=== PATIENT | female | born 1980 | race Caucasian/White ===

== ENCOUNTER 2018-04-17 21:32 | Emergency (ER) | payer MEDICAID ==
--- NOTE | 2018-04-17 21:51 | EDM.PDOC ---
ED HPI GENERAL MEDICAL PROBLEM - General Chief Complaint: Lower Extremity Injury/Pain Stated Complaint: PAIN RT KNEE Time Seen by Provider: 04/17/18 21:46 - History of Present Illness INITIAL COMMENTS - FREE TEXT/NARRATIVE: HISTORY AND PHYSICAL: History of present illness: Patient 38-year-old female with a concern of right knee pain she states she had injured proximal one year prior she failed to follow-up due to a variety of circumstances and did not get the MRI that was scheduled or other evaluation at that time patient states over the last 3 days his scar grossly worse she was seen in [place] in which physical exam was done and patient was discharged with pain medication on arrival here patient's main concern related to orthopedic referral and any other imaging might be indicated at this time Review of systems: As per history of present illness and below otherwise all systems reviewed and negative. Past medical history: As per history of present illness and as reviewed below otherwise noncontributory. Surgical history: As per history of present illness and as reviewed below otherwise noncontributory. Social history: No reported history of drug or alcohol abuse. Family history: As per history of present illness and as reviewed below otherwise noncontributory. Physical exam: HEENT: Atraumatic, normocephalic, pupils reactive, negative for conjunctival pallor or scleral icterus, mucous membranes moist, throat clear, neck supple, nontender, trachea midline. Lungs: Clear to auscultation, breath sounds equal bilaterally, chest nontender. Heart: S1S2, regular, negative for clicks, rubs, or JVD. Abdomen: Soft, nondistended, nontender. Negative for masses or hepatosplenomegaly. Negative for costovertebral tenderness. Pelvis: Stable nontender. Genitourinary: Deferred. Rectal: Deferred. Extremities: Patient has pain with small swelling noted limited range of motion secondary to the discomfort is no crepitation joint is grossly stable CMS neurovascular is unremarkable Neuro: Awake, alert, oriented. Cranial nerves II through XII unremarkable. Cerebellum unremarkable. Motor and sensory unremarkable throughout. Exam nonfocal. Diagnostics: X-ray right knee Therapeutics: Immobilizer/crutches Impression: #1 right knee pain Definitive disposition and diagnosis as appropriate pending reevaluation and review of above. 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 ED EXAM, GENERAL - Physical Exam Exam: See Below (See dictation) Course - Vital Signs Last Recorded V/S: Last Vital Signs Temp 37.1 C 04/17/18 21:32 Pulse 92 04/17/18 21:32 Resp 18 04/17/18 21:32 BP 128/71 04/17/18 21:32 Pulse Ox 98 04/17/18 21:32 Departure - Departure Time of Disposition: 21:50 Disposition: Home, Self-Care 01 Condition: Good Clinical Impression: Knee pain - Discharge Information Referrals: PCP,None [Primary Care Provider] - Additional Instructions: The following information is given to patients seen in the emergency department who are being discharged to home. This information is to outline your options for follow-up care. We provide all patients seen in our emergency department with a follow-up referral. The need for follow-up, as well as the timing and circumstances, are variable depending upon the specifics of your emergency department visit. If you don't have a primary care physician on staff, we will provide you with a referral. We always advise you to contact your personal physician following an emergency department visit to inform them of the circumstance of the visit and for follow-up with them and/or the need for any referrals to a consulting specialist. The emergency department will also refer you to a specialist when appropriate. This referral assures that you have the opportunity for followup care with a specialist. All of these measure are taken in an effort to provide you with optimal care, which includes your followup. Under all circumstances we always encourage you to contact your private physician who remains a resource for coordinating your care. When calling for followup care, please make the office aware that this follow-up is from your recent emergency room visit. If for any reason you are refused follow-up, please contact the emergency department at and asked to speak to the emergency department charge nurse. [facility] Professional Building [address] [place] [address], [address] [place] [address] Immobilizer/crutches as directed hydrocodone as prescribed call to schedule appointment with orthopedic surgery above return as needed as discussed[]
--- NOTE | 2018-04-18 16:01 | CR ---
EXAM DATE: 04/17/18 PATIENT'S AGE: 38 Patient: DIMA HOLDER Facility: [place], [place] Site . Site : [id number] Study: XRay Knee Right [id number]/[id number] 10:30:00 PM Ordering Physician: Lilli Gilmore Final Report: INDICATION: Right knee pain. COMPARISON: None. FINDINGS/IMPRESSION: Right knee, 3 views. No fracture identified. No malalignment. Preservation of knee joint spaces. Probable joint effusion in the suprapatellar bursa. Dictated by Abdiel Renae MD @ 04/17/2018 10:36:50 PM Dictated by: Abdiel Renae MD @ 04/17/2018 22:37:13 (Electronic Signature) Report Signed by Proxy. [facility]
== END 2018-04-17 23:00 | disposition home or self-care (01) ==
LOC: MW.ED 21:32
DX: M25.561 Pain in right knee (principal); F17.210 Nicotine dependence, cigarettes, uncomplicated
CPT/HCPCS: 73562-26-RT; 73562-RT; 99283

== ENCOUNTER 2018-08-23 06:36 | Day surgery (SDC) | payer MEDICAID ==
[~2018-08-23 06:36] MED LIST: Acetaminophen/HYDROcodone 325-5 MG Tab PO PRN; Lactated Ringers 1,000 ML IV SCH; ceFAZolin 2 GM in Premix Bag 1 BAG IV SCH
[2018-08-23] MEDS ORDERED: Propofol 200 MG/20 ML SDV ONE ×5 (07:03→08:09)
[2018-08-23] MEDS ORDERED: fentaNYL 250 MCG/5 ML SDV ONE (07:03)
[2018-08-23] MEDS ORDERED: Midazolam 1 MG/ML 2 ML SDV ONE ×2 (07:03→08:49)
[2018-08-23] MEDS ORDERED: ceFAZolin/Dextrose,Iso-Osmotic 2 GM/50 ML Duplex Bag IV ONE (07:05)
[2018-08-23] MEDS ORDERED: Ondansetron 4 MG/2 ML SDV ONE (07:09)
[2018-08-23] MEDS ORDERED: Dexamethasone 4 MG/ML 5 ML MDV ONE (07:09)
[2018-08-23] MEDS ORDERED: Lidocaine 1% 20 ML MDV ONE (07:40)
[2018-08-23] MEDS ORDERED: Albuterol/Ipratropium 3.0-0.5 MG/3 ML Neb Soln NEB ONE (07:41)
--- NOTE | 2018-08-23 08:00 | PCM.PREANE ---
Preanesthetic Assessment - Procedure Proposed Procedure: right knee arthroscopy - Anesthesia/Transfusion/Family Hx Anesthesia History: Prior Anesthesia Without Reaction Other Type of Anesthesia Reaction Comment: family hx of malignant hyperthermia Family History of Anesthesia Reaction: Other (see below) (father tested positive for MH...long family hx details unknown.) Transfusion History: No Prior Transfusion(s) Additional History: she had general anesthetics before without problem - Review of Systems General: Other (obseity) Pulmonary: Other (astmatic, smoker and uses inhaler everyday) Cardiovascular: No Symptoms Gastrointestinal: No Symptoms Neurological: No Symptoms Other: Reports: None - Physical Assessment NPO Status Date: 08/22/18 NPO Status Time: 20:00 O2 Sat by Pulse Oximetry: 95 Respiratory Rate: 15 Vital Signs: Last Vital Signs Temp 97.7 F 08/23/18 06:55 Pulse 65 08/23/18 06:55 Resp 15 08/23/18 06:55 BP 105/58 L 08/23/18 06:55 Pulse Ox 95 08/23/18 06:55 Height: 5 ft 3 in Weight: 230 lb ASA Class: 3 Mental Status: Alert & Oriented x3 Airway Class: Mallampati = 2 Dentition: Reports: Normal Dentition Thyro-Mental Finger Breadths: 3 Mouth Opening Finger Breadths: 3 ROM/Head Extension: Full (short neck) Lungs: Clear to Auscultation, Normal Respiratory Effort Cardiovascular: Regular Rate, Regular Rhythm, No Murmurs - Lab Values: Laboratory Last Values Urine HCG, Qual NEGATIVE (NEGATIVE) 08/23/18 06:50 - Allergies Allergies/Adverse Reactions: Allergies Allergy/AdvReac Type Severity Reaction Status Date / Time No Known Allergies Allergy Verified 08/21/18 08:03 - Blood Blood Available: No - Anesthesia Plan Pre-Op Medication Ordered: None - Acknowledgements Anesthesia Type Planned: General Anesthesia Pt an Appropriate Candidate for the Planned Anesthesia: Yes Alternatives and Risks of Anesthesia Discussed w Pt/Guardian: Yes Pt/Guardian Understands and Agrees with Anesthesia Plan: Yes Additional Comments: discussed in detail regarding her family hx. she will have general and a preop bronchodilator treatment. 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: Musculoskeletal History: Reports: Fracture Other Musculoskeletal History: hx fx arm and leg Neurological History: Reports: Migraines Psychiatric History: Reports: Anxiety, Depression Endocrine/Metabolic History: Reports: Obesity/BMI 30+ Dermatologic History: Reports: Other (See Below) Other Dermatologic History: lichen sclerosus - Past Surgical History Head Surgeries/Procedures: Reports: None HEENT Surgical History: Reports: Tonsillectomy GI Surgical History: Reports: Cholecystectomy Female Surgical History: Reports: Section, Tubal Ligation - SUBSTANCE USE Smoking Status *Q: Current Every Day Smoker Tobacco Use Within Last Twelve Months: Cigarettes Recreational Drug Use History: No - HOME MEDS Home Medications: Home Meds Albuterol Sulfate [Proair Hfa] 1 puff INH ASDIRECTED PRN 04/17/18 [History] ALPRAZolam [Alprazolam] 0.5 mg PO ASDIRECTED PRN 08/21/18 [History] Albuterol Sulfate 1 inhalation NEB ASDIRECTED PRN 08/21/18 [History] Clobetasol [Clobetasol Propionate 0.05% Cream] 1 applic TOP BID 08/21/18 [ History] Diclofenac Sodium [Voltaren] 1 applic TOP ASDIRECTED PRN 08/21/18 [History] Diclofenac Sodium [Voltaren] 75 mg PO BID 08/21/18 [History] Escitalopram [Lexapro] 10 mg PO DAILY 08/21/18 [History] - CURRENT (IN HOUSE) MEDS Current Meds: Current Medications Hydrocodone Bitart/Acetaminophen ([place] 325-5 Mg) 1 - 2 tab PO Q4H PRN PRN Reason: Pain Fentanyl (Sublimaze) 50 mcg IVPUSH Q5M PRN PRN Reason: Pain (moderate 4-6) Stop: 08/23/18 11:00 Cefazolin Sodium/Dextrose 2 gm (/ Premix) 50 mls @ 100 mls/hr IV ONCALL VALENTINO Lactated Ringer's (Ringers, Lactated) 1,000 mls @ 100 mls/hr IV ASDIRECTED VALENTINO Last Admin: 08/23/18 07:16 Dose: 100 mls/hr Discontinued Medications Albuterol/Ipratropium (Duoneb 3.0-0.5 Mg/3 Ml) 3 ml NEB ONETIME ONE Stop: 08/23/18 07:42 Last Admin: 08/23/18 07:50 Dose: 3 ml Cefazolin Sodium/Dextrose (Ancef) Confirm Administered Dose 2 gm IV .STK-MED ONE Stop: 08/23/18 07:06 Dexamethasone (Dexamethasone) Confirm Administered Dose 20 mg .ROUTE .STK-MED ONE Stop: 08/23/18 07:10 Fentanyl (Sublimaze) Confirm Administered Dose 250 mcg .ROUTE .STK-MED ONE Stop: 08/23/18 07:04 Lidocaine HCl (Xylocaine-Mpf 1%) Confirm Administered Dose 5 mls @ as directed .ROUTE .STK-MED ONE Stop: 08/23/18 07:10 Lidocaine HCl (Xylocaine 1%) Confirm Administered Dose 20 ml .ROUTE .STK-MED ONE Stop: 08/23/18 07:41 Midazolam HCl (Versed 1 Mg/Ml) Confirm Administered Dose 2 mg .ROUTE .STK-MED ONE Stop: 08/23/18 07:04 Ondansetron HCl (Zofran) Confirm Administered Dose 4 mg .ROUTE .STK-MED ONE Stop: 08/23/18 07:10 Propofol (Diprivan 20 Ml) Confirm Administered Dose 200 mg .ROUTE .STK-MED ONE Stop: 08/23/18 07:04
--- NOTE | 2018-08-23 09:14 | PCM.OPNOTE ---
- General Post-Op/Procedure Note Date of Surgery/Procedure: 08/23/18 Operative Procedure(s): R knee arthroscopy with chondroplasty of the patella and limited synovectomy with excision of medial plica Pre Op Diagnosis: R knee pain Post-Op Diagnosis: 1. R knee medial plica. 2. R knee DJD Anesthesia Technique: General LMA Primary Surgeon: Rach Dean Wire Temperer: Lilibeth Zurita in mLs: 5 Condition: Good Free Text/Narrative:: tt=16 min Brief history: Patient is a 38-year-old female who was had complaint of progressive right knee pain. She had failed conservative treatment. 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 Due to her lack of response conservative treatment, I did recommend surgical intervention. Risks and goals of procedure were discussed with the patient and documented preoperatively. She agreed to proceed. Description of procedure: Patient was properly identified and brought to the operating room. They were transferred from the OR cart and placed on operating table in supine position. General anesthesia was administered. After adequate anesthesia was obtained, well-padded tourniquet was applied to the lower extremity. The lower extremity was then prepped in standard fashion using ChloraPrep solution. It was then sterilely draped. A timeout was performed to ensure correct site and procedure. Preoperative antibiotics were given. The surgical site had been marked preoperatively. An Esmarch was used to exsanguinate the lower extremity and the tourniquet was inflated to 250 mmHg. A lateral portal arthrotomy was established. Blunt trocar and cannula were introduced into the suprapatellar space. Camera, inflow, and outflow were assembled. A medial portal arthrotomy was established. A blunt probe was inserted. Findings: Supra-patellar pouch: No significant synovitis. Patellofemoral joint: Grade 2-3 degenerative changes were noted along the superior aspect of the patella measuring ~1cm x 1.5 cm. This contacted the trochlea at ~30 degrees of flexion. Loose cartilage was noted. This was resected using a 4.5mm shaver. The area was again probed and the remaining cartilage appeared intact. The trochlea showed no significant degenerative findings. The patella appeared to track centrally. Lateral and medial gutter: No loose bodies were identified. A plica was noted along the medial gutter along with some fat pad impingement along the PFJ. The plica appeared to be causing some impingement along the MFC. The plica and a portion of the fat pad were resected with the shaver. No futher impingement was noted. Medial compartment: An area of grade 2 to grade 3 degenerative changes was noted along the weightbearing portion of the medial femoral condyle this was probed and found to be stable. The meniscus was extensively probed. No tears were noted. Grade 1 degenerative changes were noted along the medial tibial plateau. Notch: Both the ACL and PCL were visualized and probed and found to be intact. Lateral compartment: The lateral meniscus was probed and found to be stable. Grade 1 degenerative changes were found. Instruments were then removed from the knee. The portal sites were closed with 3 -0 nylon. 1% lidocaine was injected along the portal tracts. Xeroform gauze was placed over the wound and a bulky dressing was applied. Tourniquet was then deflated. Patient was awakened from the anesthetic and transferred back to the operative cart. Patient was brought to recovery room in stable condition. All needle and sponge counts were correct.
[2018-08-23] MEDS: fentaNYL 100 MCG/2 ML SDV IVPUSH PRN ×2 (09:55→10:02)
--- NOTE | 2018-08-23 11:32 | PCM.POSTAN ---
POST ANESTHESIA ASSESSMENT - MENTAL STATUS Mental Status: Alert (Patient was seen at bedside and OK for release to Phase II but this note was not written until now.), Oriented - RESPIRATORY Respiratory Status: Respiratory Rate WNL, Airway Patent, O2 Saturation Stable - CARDIOVASCULAR CV Status: Pulse Rate WNL, Blood Pressure Stable - GASTROINTESTINAL GI Status: No Symptoms - POST OP HYDRATION Hydration Status: Adequate & Stable
== END 2018-08-23 11:10 | disposition home or self-care (01) ==
LOC: MW.SDS 06:36
PROVIDERS: ATTEND Orthopaedic Surgery
DX: M67.51 Plica syndrome, right knee (principal); M17.11 Unilateral primary osteoarthritis, right knee; M23.41 Loose body in knee, right knee; J45.909 Unspecified asthma, uncomplicated; F17.210 Nicotine dependence, cigarettes, uncomplicated; E66.9 Obesity, unspecified; F41.9 Anxiety disorder, unspecified; Z79.899 Other long term (current) drug therapy
CPT/HCPCS: 29875; 81025; 94640; J0690; J1100; J2250; J2405; J2704; J3010; J7120; J7620-GY